=== PATIENT | male | born 1985 | race African-American/Black ===

== ENCOUNTER 2020-02-13 00:25 | Emergency (ER) | payer BC, OTHER ==
[2020-02-13] MEDS ORDERED: Lidocaine 2% EPI 1:200000 MPF* 10 ML VIAL INJ ONE (00:40)
[2020-02-13] MEDS ORDERED: Ibuprofen TAB* 600 MG PO ONE (00:48)
--- NOTE | 2020-02-13 01:19 | ED ---
Laceration/Wound HPI - HPI Summary HPI Summary: 34 year old male presents right arm laceration. He states that a mirror fell on his arm. He denies any foreign body in the wound. The area continues to bleed. Has some swelling to the area. Has full range of motion of his arm and wrist. Last tetanus was 8 years ago. Has no medical conditions. - History of Current Complaint Stated Complaint: RT ARM LAC PER PT Time Seen by Provider: 02/13/20 00:36 Pain Intensity: 0 - Allergy/Home Medications Allergies/Adverse Reactions: Allergies Allergy/AdvReac Type Severity Reaction Status Date / Time No Known Allergies Allergy Verified 02/13/20 00:30 PMH/Surg Hx/FS Hx/Imm Hx Endocrine/Hematology History: Denies: Hx Anticoagulant Therapy Respiratory History: Denies: Hx Asthma Infectious Disease History: No Infectious Disease History: Denies: Traveled Outside the [place] in Last 30 Days - Family History Known Family History: Positive: Non-Contributory - Social History Substance Use Type: Reports: None Smoking Status (MU): Unknown if Ever Smoked Review of Systems Negative: Fever Negative: Chest Pain Negative: Shortness Of Breath Positive: Other - lacerations right arm All Other Systems Reviewed And Are Negative: Yes Physical Exam Triage Information Reviewed: Yes Vital Signs On Initial Exam: Initial Vitals Temp Pulse Resp BP Pulse Ox 97.7 F 72 16 135/86 95 02/13/20 00:27 02/13/20 00:27 02/13/20 00:27 02/13/20 00:27 02/13/20 00:27 Vital Signs Reviewed: Yes Appearance: Positive: Well-Appearing Skin: Positive: Warm, Dry, Other - 6cm by 1cm by 1cm of right arm Head/Face: Positive: Normal Head/Face Inspection Eyes: Positive: Normal, Conjunctiva Clear ENT: Positive: Pharynx normal Respiratory/Lung Sounds: Positive: Clear to Auscultation, Breath Sounds Present Cardiovascular: Positive: Normal, RRR Musculoskeletal: Positive: Strength/ROM Intact - right arm, Other - good pulses Neurological: Positive: Normal Psychiatric: Positive: Normal Procedures - Sedation Patient Received Moderate/Deep Sedation with Procedure: No - Laceration/Wound Repair 1 Location: Other - right arm Description: Linear Anesthesia: Local, 1.0%, Epi Length, Depth and Shape: 6cm by 1cm by 1cm Irrigated w/ Saline (ccs): 500 Closure: Multilayer Suture Type: Prolene, Vicryl Number of Sutures: 10 Layer Closure?: Yes - 3 absorbable and 7 prolene Diagnostics - Vital Signs Vital Signs Temp Pulse Resp BP Pulse Ox 02/13/20 00:27 97.7 F 72 16 135/86 95 - Laboratory Lab Statement: Any lab studies that have been ordered have been reviewed, and results considered in the medical decision making process. Laceration Repair Course/Dx - Course Course Of Treatment: 34 year old male presents right arm laceration. He states that a mirror fell on his arm. He denies any foreign body in the wound. The area continues to bleed. Has some swelling to the area. Has full range of motion of his arm and wrist. Last tetanus was 8 years ago. Has no medical conditions. On exam has 6 cm by 1 cm x 1 cm laceration to right forearm. Has a hematoma under the area. Removed part of the hematoma. Place 3 absorbable and 7 Prolene. Placed a compression dressing on the area. Told with a hematoma there laceration will likely continue to bleed. Told to keep area clean and dry. Patient understands agrees the plan. - Differential Dx Differental Diagnoses: Abrasion, Avulsion, Laceration - Clinical Impression Provider Diagnoses: Laceration of right forearm Discharge ED - Sign-Out/Discharge Documenting (check all that apply): Patient Departure - Discharge Plan Condition: Good Disposition: HOME Patient Education Materials: Care For Your Stitches (ED) Referrals: No Primary Care Phys,NOPCP [Primary Care Provider] - Additional Instructions: Take Tylenol or ibuprofen for pain every 6 hours as needed Keep area clean and dry for 24 hours Return to ED or primary in 8-10 days to have sutures removed apply ice to area change dressing daily Return to ED if develop signs of infection such as fever, spreading redness, or pus. - Billing Disposition and Condition Condition: GOOD Disposition: Home - Attestation Statements Provider Attestation: I was available for consult. This patient was seen by the ENRIQUETA. The patient was not presented to, seen by, or examined by me. Tommy Arceo MD
[2020-02-13] MEDS ORDERED: Tetan/Diph/Pertus SYR(Tdap)* 0.5 ML SYR(BOOSTRIX) use SYR contains LATEX IM ONE (01:20)
[2020-02-13 01:50] VITALS: BP 135/88
== END 2020-02-13 01:49 | disposition home or self-care (01) ==
LOC: ED 00:25
DX: S41.111A Laceration without foreign body of right upper arm, initial encounter (principal); W25.XXXA Contact with sharp glass, initial encounter; Y92.9 Unspecified place or not applicable
CPT/HCPCS: 12002; 90471; 90715; 99282; A9270-GY